=== PATIENT | female | born 1985 | race Two or more races ===

== ENCOUNTER 2023-11-26 14:18 | Emergency (ER) | payer OTHER ==
[~2023-11-26] VITALS: Ht 162.6 cm; Wt 74.6 kg
[2023-11-26] MEDS ORDERED: VANCOMYCIN HCL 1000 MG VL IV ONE (16:30)
[2023-11-26 17:28] LABS: Basophils # (auto) 0 10 ^3/uL (0-0.2); Basophils % (auto) 0.3 % (0.0-2.0); Eosinophils # (auto) 0 10 ^3/uL (0-0.8); Eosinophils % (auto) 0.1 % (0.0-7.0); Hematocrit 38.9 % (36.0-46.0); Hemoglobin 13.4 g/dL (12.2-16.2); Lymphocytes % (auto) 6.9 % (10.0-50.0); Mean Corpuscular Hemoglobin 28.6 pg (28.0-32.0); Mean Corpuscular Hgb Conc. 34.4 g/dL (32.0-36.0); Mean Corpuscular Volume 83.2 fL (80.0-100.0); Monocytes # (auto) 0.9 10 ^3/uL (0-1.3); Monocytes % (auto) 6.5 % (0.0-12.0); Neutrophils # (auto) 12.1 10 ^3/uL (1.6-8.6); Neutrophils % (auto) 86.2 % (37.0-80.0); Nucleated Red Blood Cells % 0.2 %; Platelet Count (auto) 460 10^3/uL (140-450); Red Blood Cells 4.68 10^6/uL (4.0-5.20); Red Cell Distribution Width 12.6 % (11.8-14.3)
[2023-11-26 17:44] LABS: Alanine Aminotransferase 33 U/L (7-40); Albumin 4.7 g/dL (3.2-4.8); Alkaline Phosphatase 177 U/L (46-116); Anion Gap 10 (5-15); Aspartate Aminotransferase 43 U/L (13-40); BUN/Creatinine Ratio 7.4 (10.0-20.0); Bilirubin, Total 2.1 mg/dL (0.2-1.0); Blood Urea Nitrogen 7 mg/dL (9-23); Carbon Dioxide 23 mmol/L (20-30); Chloride 103 mmol/L (98-107); Glucose 88 mg/dL (74-106); Magnesium 2.1 mg/dL (1.6-2.6); Potassium 3.8 mmol/L (3.5-5.1); Sodium 136 mmol/L (136-145)
[2023-11-26 17:45] LABS: Total Protein 8.8 g/dL (5.7-8.2)
[2023-11-26 19:55] VITALS: PULSE 128; RESP 20; O2SAT 97
[2023-11-26] MEDS: VANCOMYCIN 1GM/200ML 200 ML IV ONE (20:20)
[2023-11-26] MEDS: SODIUM CHLORIDE 0.9% 500 ML IVB ONE (20:20)
[2023-11-26] MEDS: IOHEXOL 300 MG/ML 100ML BOTTLE IJ ONE (20:36)
[2023-11-26 22:25] VITALS: PULSE 103; RESP 13; O2SAT 96
[2023-11-26 22:40] LABS: Urine Bacteria None Seen /hpf (None Seen)
[2023-11-26 23:17] LABS: Urine Blood 1+ /uL (Negative); Urine Clarity Clear (Clear); Urine Color Yellow (Yellow); Urine Mucus FEW (None Seen); Urine Protein, UAD 1+ (Negative); Urine Urobilinogen 4 mg/dL (Negative); Urine WBC 3 /hpf (0 - 5)
[2023-11-26 23:18] LABS: Urine Specific Gravity > 1.050 (1.001-1.035)
[2023-11-27] MEDS: MORPHINE SULFATE 4 MG/ML SYR/VIAL IV ONE (00:05)
[2023-11-27] MEDS: ACETAMINOPHEN 325 MG TAB PO ONE (01:21)
[2023-11-27] MEDS: ACETAMINOPHEN IV 1000 MG/100ML (10MG/ML) IV STA (01:23)
[2023-11-27 01:54] VITALS: BP 112/59; PULSE 98; RESP 20; TEMP 100.1; O2SAT 98
== END 2023-11-27 02:00 | disposition short-term general hospital (02) ==
LOC: ER 14:18
DX: K04.7 Periapical abscess without sinus (principal); R10.2 Pelvic and perineal pain; R22.1 Localized swelling, mass and lump, neck; Z32.02 Encounter for pregnancy test, result negative; Z79.899 Other long term (current) drug therapy
CPT/HCPCS: 36415; 70491; 71046; 80053; 81001; 83735; 84702; 85025; 96365; 96375; 99285; J2270; J3370; J7040; Q9967; J0131